=== PATIENT | female | born 1940 | race Caucasian/White ===

== ENCOUNTER 2024-04-07 13:53 | Inpatient (IN) | payer MEDICARE, BC ==
[~2024-04-07] VITALS: Ht 162.6 cm; Wt 46.7 kg
[2024-04-07] MEDS ORDERED: DIPH25TA62 PO (14:08)
[2024-04-07] MEDS ORDERED: BENZ200C53 PO (14:08)
[2024-04-07] MEDS ORDERED: AMLO10TA59 PO (14:08)
[2024-04-07] MEDS ORDERED: LIPA1CAP15 PO (14:08)
[2024-04-07] MEDS ORDERED: ALPR0.25 PO (14:08)
[2024-04-07] MEDS ORDERED: MENT71OI TP (14:08)
[2024-04-07] MEDS ORDERED: LOPE2CAP14 PO (14:08)
[2024-04-07] MEDS ORDERED: FENT1PAT4 TD (14:08)
[2024-04-07] MEDS ORDERED: ALPR0.255 PO (14:08)
[2024-04-07] MEDS ORDERED: CARV6.25 PO (14:08)
[2024-04-07] MEDS ORDERED: VENL37.55 PO (14:08)
[2024-04-07] MEDS ORDERED: PHEN-705 PO (14:29)
[2024-04-07] MEDS ORDERED: CALC500T13 PO (14:29)
[2024-04-07] MEDS ORDERED: CHOL378P4 PO (14:29)
[2024-04-07] MEDS ORDERED: ALBU18HF2 IH (14:29)
[2024-04-07] MEDS ORDERED: SUCR1TAB PO (14:29)
[2024-04-07] MEDS ORDERED: LACT10SO58 PO (14:29)
[2024-04-07] MEDS ORDERED: GUAI237L98 PO (14:29)
[2024-04-07] MEDS ORDERED: NUT.237L67 PO (14:29)
[2024-04-07] MEDS ORDERED: FOLI0.8T23 PO (14:29)
[2024-04-07] MEDS ORDERED: PSYL575P22 PO (14:29)
[2024-04-07] MEDS ORDERED: SENN8.6T19 PO (14:29)
[2024-04-07] MEDS ORDERED: DIPH1TAB PO (14:29)
[2024-04-07] MEDS ORDERED: ONDA4TAB5 PO (14:29)
[2024-04-07] MEDS ORDERED: FLUO30CR36 TP (14:29)
[2024-04-07] MEDS ORDERED: PANT40TA49 PO (14:29)
[2024-04-07] MEDS ORDERED: HYDR-3980 PO (14:29)
[2024-04-07] MEDS ORDERED: GABA-532 PO (14:29)
[2024-04-07] MEDS ORDERED: NALO4SPR NS (14:29)
[2024-04-07] MEDS ORDERED: IBUP-1953 PO (14:29)
[2024-04-07] MEDS ORDERED: METH1TAB PO (14:29)
[2024-04-07] MEDS ORDERED: LEVO100T10 PO (14:29)
[2024-04-07 14:48] LABS: BASOPHILS % (AUTO) 0.5 % (0.0-2.0); EOSINOPHILS # (AUTO) 0.4 K/uL (0.0-0.7); EOSINOPHILS % (AUTO) 4.7 % (0.0-7.0); HEMATOCRIT 33.6 % (31.2-41.9); HEMOGLOBIN 10.9 g/dL (10.9-14.3); LYMPHOCYTES # (AUTO) 2.1 K/uL (0.8-4.8); LYMPHOCYTES % (AUTO) 22.4 % (20.5-51.5); MEAN CORPUSCULAR HEMOGLOBIN 28.7 uug (24.7-32.8); MEAN CORPUSCULAR HGB CONC 33 g/dL (32.3-35.6); MEAN CORPUSCULAR VOLUME 88.2 fL (75.5-95.3); MONOCYTES % (AUTO) 10.8 % (0.0-11.0); NEUTROPHILS # (AUTO) 5.9 K/uL (1.8-8.9); NEUTROPHILS % (AUTO) 61.6 % (38.5-71.5); PLATELET COUNT (AUTO) 213 K/uL (179-408); RED BLOOD CELL COUNT(AUTO) 3.82 MIL/uL (3.63-4.92); RED CELL DISTRIBUTION WIDTH 15.1 % (12.3-17.7); WHITE BLOOD COUNT (AUTO) 9.6 K/uL (3.8-11.8)
[2024-04-07 14:51] LABS: CALCIUM 9.1 mg/dL (8.5-10.1); CARBON DIOXIDE 30 mmol/L (21-32); CHLORIDE 100 mmol/L (98-107); GLUCOSE 122 mg/dL (74-106); POTASSIUM 4.3 mmol/L (3.5-5.1); SODIUM SERUM 140 mmol/L (136-145); UREA NITROGEN, BLOOD 34 mg/dL (7-18)
[2024-04-07 14:56] LABS: DIFFERENTIAL COMMENT 1
[2024-04-07 14:58] LABS: AMMONIA 42 umol/L (11-32); ETHANOL < 3 MG/DL (0-10)
[2024-04-07 15:07] LABS: ACETAMINOPHEN < 2.0 ug/mL (10-30); ALANINE AMINOTRANSFERASE 93 U/L (14-59); ALBUMIN 3.1 g/dL (3.4-5.0); ALKALINE PHOSPHATASE 589 U/L (50-136); ASPARTATE AMINOTRANSFERASE 116 U/L (15-37); BILIRUBIN,DIRECT 0.1 mg/dL (0.0-0.2); BILIRUBIN,TOTAL 0.6 mg/dL (0.2-1.0); TOTAL PROTEIN, SERUM 7.2 g/dL (6.4-8.2)
[2024-04-07 15:20] LABS: THYROID STIMULATING HORMONE 6.314 mIU/mL (0.358-3.740)
[2024-04-07 15:32] LABS: *BILIRUBIN,URIN NEGATIVE (NEGATIVE); *CLARITY,URINE CLEAR (CLEAR); *COLOR,URINE YELLOW (YELLOW); *KETONES,URINE NEGATIVE (NEGATIVE); *PROTEIN,URINE 2+ (NEGATIVE); *UROBILINOGEN,URINE 0.2 E.U./dl (NORMAL); LEUKOCYTE ESTERASE ,URINE NEGATIVE (NEGATIVE); NITRITE, URINE NEGATIVE (NEGATIVE); UGLUCOSE NEGATIVE (NEGATIVE)
[2024-04-07 15:37] LABS: *BLOOD, URINE TRACE (NEGATIVE)
[2024-04-07] MEDS ORDERED: AZITHROMYCIN 250 MG TABLET ONE (15:37)
[2024-04-07] MEDS ORDERED: CEFTRIAXONE /D5W 50ML IVPB **ER PYXIS IV ONE (15:37)
[2024-04-07] MEDS: CEFTRIAXONE 1 G in IV DEXTROSE 5% 50 ML IV ONE (15:44)
[2024-04-07] MEDS: AZITHROMYCIN 250 MG TABLET PO ONE (15:45)
[2024-04-07 15:46] LABS: *AMPHETAMINE, URINE NEGATIVE (NEGATIVE); *BARBITURATE, URINE NEGATIVE (NEGATIVE); *BENZODIAZEPINE, URINE POSITIVE (NEGATIVE); *CANNABINOID, URINE NEGATIVE (NEGATIVE); *COCCAINE, URINE NEGATIVE (NEGATIVE); *OPIATE, URINE POSITIVE (NEGATIVE); *PHENCYCLIDINE SCREEN,URINE NEGATIVE (NEGATIVE)
[2024-04-07 15:56] LABS: FENTANYL, URINE POSITIVE (NEGATIVE)
[2024-04-07 16:02] LABS: BACTERIA,URINE MODERATE /HPF (NONE SEEN); RBC,URINE 0-3 /HPF (0-3); SQUAMOUS EPITHELIAL CELL,UR FEW /HPF (NONE SEEN); WBC,URINE 0-3 /HPF (0-3)
[2024-04-07 16:15] VITALS: O2SAT 98
[2024-04-07] MEDS ORDERED: BENZ-38 PO (16:43)
[2024-04-07 16:58] VITALS: BP 123/53; TEMP 97.2; O2SAT 97
[2024-04-07] MEDS ORDERED: METH-806 PO (17:03)
[2024-04-07] MEDS ORDERED: NALOXONE NASAL SPRAY 4 MG SPRAY NS SCH (18:00)
[2024-04-07] MEDS ORDERED: SENNOSIDES 1 TABLET PO PRN (18:00)
[2024-04-07] MEDS ORDERED: ONDANSETRON HCL 4 MG TABLET PO PRN (18:00)
[2024-04-07] MEDS ORDERED: BENZONATATE 100 MG CAPSULE PO PRN (18:00)
[2024-04-07] MEDS ORDERED: REMEDY ESSENTIAL ZINC PASTE 113 GM TP PRN (18:00)
[2024-04-07] MEDS ORDERED: NALOXONE HCL 0.4 MG/ML AMPUL IV PRN (18:00)
[2024-04-07] MEDS: NEPRO (VANILLA) 237 ML CAN PO SCH (18:27)
[2024-04-07] MEDS: IV NS 1000 ML 1,000 ML IV PRN (18:33)
[2024-04-07 19:58] VITALS: BP 128/56; TEMP 97.9; O2SAT 100
[2024-04-07] MEDS: CARVEDILOL 6.25 MG TABLET PO SCH (20:55)
[2024-04-07] MEDS: SUCRALFATE 1 G TABLET PO SCH (20:55)
[2024-04-08] VITALS (9 sets, daily range): BP systolic 119–153; BP diastolic 48–61; TEMP 98–98.9; O2SAT 96–99
[2024-04-08] MEDS: LEVOTHYROXINE SODIUM 100 MCG TABLET PO SCH (06:11)
[2024-04-08 06:50] LABS: BASOPHILS % (AUTO) 0.5 % (0.0-2.0); EOSINOPHILS # (AUTO) 0.3 K/uL (0.0-0.7); EOSINOPHILS % (AUTO) 4.4 % (0.0-7.0); HEMATOCRIT 29.8 % (31.2-41.9); HEMOGLOBIN 9.9 g/dL (10.9-14.3); LYMPHOCYTES # (AUTO) 1.5 K/uL (0.8-4.8); LYMPHOCYTES % (AUTO) 23.2 % (20.5-51.5); MEAN CORPUSCULAR HEMOGLOBIN 29.1 uug (24.7-32.8); MEAN CORPUSCULAR HGB CONC 33 g/dL (32.3-35.6); MEAN CORPUSCULAR VOLUME 87.8 fL (75.5-95.3); MONOCYTES # (AUTO) 0.7 K/uL (0.1-1.30); MONOCYTES % (AUTO) 10.8 % (0.0-11.0); NEUTROPHILS # (AUTO) 3.9 K/uL (1.8-8.9); NEUTROPHILS % (AUTO) 61.1 % (38.5-71.5); PLATELET COUNT (AUTO) 178 K/uL (179-408); RED CELL DISTRIBUTION WIDTH 14.7 % (12.3-17.7); WHITE BLOOD COUNT (AUTO) 6.4 K/uL (3.8-11.8)
[2024-04-08 06:58] LABS: DIFFERENTIAL COMMENT 1
[2024-04-08 07:07] LABS: ALANINE AMINOTRANSFERASE 313 U/L (14-59); ALBUMIN 2.5 g/dL (3.4-5.0); ALKALINE PHOSPHATASE 596 U/L (50-136); ASPARTATE AMINOTRANSFERASE 495 U/L (15-37); BILIRUBIN,TOTAL 0.7 mg/dL (0.2-1.0); CALCIUM 8.7 mg/dL (8.5-10.1); CARBON DIOXIDE 31 mmol/L (21-32); CHLORIDE 105 mmol/L (98-107); CHOLESTEROL 175 mg/dL (<200); CREATININE 3.1 mg/dL (0.6-1.3); GLUCOSE 90 mg/dL (74-106); HDL CHOLESTEROL 91 mg/dL (40-60); MAGNESIUM 1.7 mg/dL (1.8-2.4); PHOSPHOROUS 4.2 mg/dL (2.5-4.9); POTASSIUM 4.6 mmol/L (3.5-5.1); SODIUM SERUM 141 mmol/L (136-145); TRIGLYCERIDES 70 MG/DL (30-150); UREA NITROGEN, BLOOD 40 mg/dL (7-18)
[2024-04-08] MEDS: ALBUTEROL SULFATE 2.5 MG/3 ML NEBU NEB SCH (07:30)
[2024-04-08] MEDS: PANTOPRAZOLE SODIUM 40 MG TABLET.DR PO SCH (08:34)
[2024-04-08] MEDS: AMLODIPINE 10 MG TABLET PO SCH (08:34)
[2024-04-08] MEDS: CALCIUM CARBONATE 500 MG TAB.CHEW PO SCH (08:34)
[2024-04-08] MEDS: GABAPENTIN 100 MG CAPSULE PO SCH (08:34)
[2024-04-08] MEDS: FOLIC ACID/VITAMIN B COMP W-C TABLET PO SCH (08:35)
[2024-04-08] MEDS: LIPASE/PROTEASE/AMYLASE 4200 UNITS CAPSULE.DR PO SCH (08:40)
[2024-04-08] MEDS: VENLAFAXINE XR 37.5 MG CAP.SR.24H PO SCH (08:40)
[2024-04-08] MEDS ORDERED: LIPASE/PROTEASE/AMYLASE 4200 UNITS CAPSULE.DR PO SCH (09:00)
[2024-04-08] MEDS ORDERED: ALBUTEROL SULFATE 8 GM HFA.AER.AD IH SCH (09:00)
[2024-04-08] MEDS ORDERED: MAGNESIUM SULFATE/D5W 400 ML ONE (20:59)
[2024-04-08] MEDS: MAGNESIUM SULFATE/D5W 100 ML IV SCH (21:04)
[2024-04-09] VITALS (9 sets, daily range): BP systolic 137–145; BP diastolic 52–60; TEMP 97.5–98.3; O2SAT 90–99
[2024-04-09 07:04] LABS: BASOPHILS % (AUTO) 0.4 % (0.0-2.0); DIFFERENTIAL COMMENT 1; EOSINOPHILS # (AUTO) 0.3 K/uL (0.0-0.7); EOSINOPHILS % (AUTO) 3.8 % (0.0-7.0); HEMATOCRIT 30.4 % (31.2-41.9); HEMOGLOBIN 10.2 g/dL (10.9-14.3); LYMPHOCYTES % (AUTO) 26.1 % (20.5-51.5); MEAN CORPUSCULAR HEMOGLOBIN 29.2 uug (24.7-32.8); MEAN CORPUSCULAR HGB CONC 33 g/dL (32.3-35.6); MEAN CORPUSCULAR VOLUME 87.4 fL (75.5-95.3); MONOCYTES # (AUTO) 0.7 K/uL (0.1-1.30); MONOCYTES % (AUTO) 8.9 % (0.0-11.0); NEUTROPHILS # (AUTO) 4.6 K/uL (1.8-8.9); NEUTROPHILS % (AUTO) 60.8 % (38.5-71.5); PLATELET COUNT (AUTO) 203 K/uL (179-408); RED BLOOD CELL COUNT(AUTO) 3.48 MIL/uL (3.63-4.92); RED CELL DISTRIBUTION WIDTH 14.8 % (12.3-17.7); WHITE BLOOD COUNT (AUTO) 7.5 K/uL (3.8-11.8)
[2024-04-09 07:19] LABS: CALCIUM 8.9 mg/dL (8.5-10.1); CARBON DIOXIDE 30 mmol/L (21-32); CHLORIDE 107 mmol/L (98-107); CREATININE 3.3 mg/dL (0.6-1.3); GLUCOSE 103 mg/dL (74-106); MAGNESIUM 3.3 mg/dL (1.8-2.4); PHOSPHOROUS 3.4 mg/dL (2.5-4.9); POTASSIUM 4.2 mmol/L (3.5-5.1); SODIUM SERUM 142 mmol/L (136-145); UREA NITROGEN, BLOOD 43 mg/dL (7-18)
[2024-04-09] MEDS: FENTANYL 25 MCG/HR PATCH EACH TD SCH (08:09)
[2024-04-09] MEDS: IBUPROFEN 400 MG TABLET PO PRN (22:29)
[2024-04-10] VITALS (11 sets, daily range): BP systolic 129–150; BP diastolic 52–60; TEMP 97.7–98.2; O2SAT 92–100
[2024-04-10 06:10] LABS: BASOPHILS % (AUTO) 0.4 % (0.0-2.0); EOSINOPHILS # (AUTO) 0.3 K/uL (0.0-0.7); EOSINOPHILS % (AUTO) 3.5 % (0.0-7.0); HEMATOCRIT 32.8 % (31.2-41.9); LYMPHOCYTES # (AUTO) 1.9 K/uL (0.8-4.8); MEAN CORPUSCULAR HEMOGLOBIN 28.9 uug (24.7-32.8); MEAN CORPUSCULAR HGB CONC 34 g/dL (32.3-35.6); MEAN CORPUSCULAR VOLUME 86.3 fL (75.5-95.3); MONOCYTES # (AUTO) 0.8 K/uL (0.1-1.30); MONOCYTES % (AUTO) 9.1 % (0.0-11.0); PLATELET COUNT (AUTO) 196 K/uL (179-408); WHITE BLOOD COUNT (AUTO) 9.1 K/uL (3.8-11.8)
[2024-04-10 06:21] LABS: DIFFERENTIAL COMMENT 1
[2024-04-10 06:31] LABS: CALCIUM 8.9 mg/dL (8.5-10.1); CARBON DIOXIDE 31 mmol/L (21-32); CHLORIDE 103 mmol/L (98-107); CREATININE 2.3 mg/dL (0.6-1.3); GLUCOSE 99 mg/dL (74-106); MAGNESIUM 2.3 mg/dL (1.8-2.4); PHOSPHOROUS 2.5 mg/dL (2.5-4.9); POTASSIUM 3.3 mmol/L (3.5-5.1); SODIUM SERUM 142 mmol/L (136-145); UREA NITROGEN, BLOOD 22 mg/dL (7-18)
[2024-04-10] MEDS: MUPIROCIN 2% OINT 22 GM TUBE NS SCH (08:33)
[2024-04-10] MEDS ORDERED: MUPIROCIN 2% OINT 22 GM TUBE NS SCH (09:00)
[2024-04-10] MEDS: POTASSIUM CHLORIDE 10 MEQ TAB.PRT.SR PO ONE (10:15)
[2024-04-10] MEDS ORDERED: POTASSIUM CHLORIDE 50 ML IV SCH (10:15)
[2024-04-10 10:46] LABS: ALBUMIN 2.8 g/dL (3.4-5.0); BILIRUBIN,DIRECT 0.1 mg/dL (0.0-0.2); BILIRUBIN,TOTAL 0.5 mg/dL (0.2-1.0); TOTAL PROTEIN, SERUM 6.4 g/dL (6.4-8.2)
[2024-04-10] MEDS: DICYCLOMINE HCL 10 MG CAPSULE PO SCH (12:00)
[2024-04-10] MEDS: METRONIDAZOLE 500 MG TABLET PO SCH (13:17)
[2024-04-10] MEDS ORDERED: FLUOROURACIL (18:49)
[2024-04-10] MEDS: REMEDY ESSENTIAL ZINC PASTE 113 GM TP SCH (21:19)
[2024-04-10] MEDS: ACETAMINOPHEN 325 MG TABLET PO PRN (23:05)
[2024-04-11] VITALS (9 sets, daily range): BP systolic 125–146; BP diastolic 51–59; TEMP 97.4–98.2; O2SAT 97–100
[2024-04-11 06:55] LABS: BASOPHILS % (AUTO) 0.6 % (0.0-2.0); EOSINOPHILS # (AUTO) 0.5 K/uL (0.0-0.7); EOSINOPHILS % (AUTO) 6.9 % (0.0-7.0); HEMATOCRIT 31.5 % (31.2-41.9); HEMOGLOBIN 10.5 g/dL (10.9-14.3); LYMPHOCYTES # (AUTO) 2.5 K/uL (0.8-4.8); LYMPHOCYTES % (AUTO) 31.2 % (20.5-51.5); MEAN CORPUSCULAR HEMOGLOBIN 28.8 uug (24.7-32.8); MEAN CORPUSCULAR HGB CONC 33 g/dL (32.3-35.6); MEAN CORPUSCULAR VOLUME 86.5 fL (75.5-95.3); MONOCYTES # (AUTO) 0.7 K/uL (0.1-1.30); MONOCYTES % (AUTO) 9.5 % (0.0-11.0); NEUTROPHILS # (AUTO) 4.1 K/uL (1.8-8.9); NEUTROPHILS % (AUTO) 51.8 % (38.5-71.5); PLATELET COUNT (AUTO) 207 K/uL (179-408); RED BLOOD CELL COUNT(AUTO) 3.64 MIL/uL (3.63-4.92); RED CELL DISTRIBUTION WIDTH 14.8 % (12.3-17.7); WHITE BLOOD COUNT (AUTO) 7.9 K/uL (3.8-11.8)
[2024-04-11 07:15] LABS: CALCIUM 9.6 mg/dL (8.5-10.1); CARBON DIOXIDE 32 mmol/L (21-32); CHLORIDE 105 mmol/L (98-107); GLUCOSE 102 mg/dL (74-106); MAGNESIUM 2.3 mg/dL (1.8-2.4); PHOSPHOROUS 3.3 mg/dL (2.5-4.9); POTASSIUM 4.1 mmol/L (3.5-5.1); SODIUM SERUM 143 mmol/L (136-145); UREA NITROGEN, BLOOD 28 mg/dL (7-18)
[2024-04-11 07:31] LABS: ALBUMIN 2.8 g/dL (3.4-5.0); BILIRUBIN,DIRECT 0.1 mg/dL (0.0-0.2); BILIRUBIN,TOTAL 0.4 mg/dL (0.2-1.0); TOTAL PROTEIN, SERUM 6.5 g/dL (6.4-8.2)
[2024-04-11 07:38] LABS: DIFFERENTIAL COMMENT 1
[2024-04-11 08:11] LABS: HEPATITIS B SURFACE AB, QUAL Non Reactive (.); HEPATITIS B SURFACE AG Negative (Negative)
[2024-04-11] MEDS ORDERED: HYDROCODONE/APAP 5-325MG TABLET PO PRN (11:00)
[2024-04-11] MEDS: levoFLOXacin 750 MG TABLET PO ONE (11:14)
[2024-04-11] MEDS: ALPRAZOLAM 0.25 MG TABLET PO PRN (11:17)
[2024-04-11] MEDS: LOPERAMIDE HCL 2 MG CAPSULE PO PRN (11:17)
[2024-04-12 03:10] VITALS: O2SAT 97
[2024-04-12 06:00] VITALS: BP 135/56; TEMP 97.6; O2SAT 99
[2024-04-12 07:31] LABS: BASOPHILS % (AUTO) 0.6 % (0.0-2.0); EOSINOPHILS # (AUTO) 0.4 K/uL (0.0-0.7); EOSINOPHILS % (AUTO) 5.7 % (0.0-7.0); HEMATOCRIT 30.9 % (31.2-41.9); HEMOGLOBIN 10.3 g/dL (10.9-14.3); LYMPHOCYTES # (AUTO) 2.4 K/uL (0.8-4.8); LYMPHOCYTES % (AUTO) 30.9 % (20.5-51.5); MEAN CORPUSCULAR HEMOGLOBIN 29.1 uug (24.7-32.8); MEAN CORPUSCULAR HGB CONC 34 g/dL (32.3-35.6); MEAN CORPUSCULAR VOLUME 86.9 fL (75.5-95.3); MONOCYTES # (AUTO) 0.8 K/uL (0.1-1.30); MONOCYTES % (AUTO) 9.9 % (0.0-11.0); NEUTROPHILS # (AUTO) 4.1 K/uL (1.8-8.9); NEUTROPHILS % (AUTO) 52.9 % (38.5-71.5); PLATELET COUNT (AUTO) 205 K/uL (179-408); RED BLOOD CELL COUNT(AUTO) 3.56 MIL/uL (3.63-4.92); WHITE BLOOD COUNT (AUTO) 7.7 K/uL (3.8-11.8)
[2024-04-12 07:39] LABS: DIFFERENTIAL COMMENT 1
[2024-04-12 07:55] LABS: CALCIUM 9.7 mg/dL (8.5-10.1); CARBON DIOXIDE 27 mmol/L (21-32); CHLORIDE 105 mmol/L (98-107); CREATININE 3.3 mg/dL (0.6-1.3); GLUCOSE 96 mg/dL (74-106); MAGNESIUM 2.2 mg/dL (1.8-2.4); PHOSPHOROUS 3.7 mg/dL (2.5-4.9); POTASSIUM 4.1 mmol/L (3.5-5.1); SODIUM SERUM 143 mmol/L (136-145); UREA NITROGEN, BLOOD 35 mg/dL (7-18)
[2024-04-12 08:29] VITALS: O2SAT 97
[2024-04-12 08:39] VITALS: O2SAT 97
[2024-04-12 11:53] VITALS: BP 141/60; TEMP 97.9; O2SAT 100
[2024-04-12] MEDS: MORPHINE SULFATE 4 MG/1 ML DISP.SYRIN IV ONE (13:46)
== END 2024-04-12 15:25 | DRG 917 ==
LOC: ER 13:53 → TELE3 16:06 → MEDSURG3 04-11 11:07
PROVIDERS: ADMIT Nurse Practitioner Acute Care; ATTEND Nurse Practitioner Acute Care
PROC: 5A1D70Z Performance of Urinary Filtration, Intermittent, Less than 6 Hours Per Day (ICD-10-PCS; principal; 2024-04-09)
DX: T40.411A Poisoning by fentanyl or fentanyl analogs, accidental (unintentional), initial encounter (principal); G92.8 Other toxic encephalopathy; N18.6 End stage renal disease; E44.0 Moderate protein-calorie malnutrition; Z68.1 Body mass index [BMI] 19.9 or less, adult; I12.0 Hypertensive chronic kidney disease with stage 5 chronic kidney disease or end stage renal disease; J96.11 Chronic respiratory failure with hypoxia; E72.20 Disorder of urea cycle metabolism, unspecified; T40.2X1A Poisoning by other opioids, accidental (unintentional), initial encounter; T42.6X1A Poisoning by other antiepileptic and sedative-hypnotic drugs, accidental (unintentional), initial encounter; T42.4X1A Poisoning by benzodiazepines, accidental (unintentional), initial encounter; Y92.099 Unspecified place in other non-institutional residence as the place of occurrence of the external cause; Z99.2 Dependence on renal dialysis; K59.03 Drug induced constipation; K58.0 Irritable bowel syndrome with diarrhea; Z85.828 Personal history of other malignant neoplasm of skin; Z85.028 Personal history of other malignant neoplasm of stomach; Z79.899 Other long term (current) drug therapy; G89.4 Chronic pain syndrome; F41.9 Anxiety disorder, unspecified; F32.9 Major depressive disorder, single episode, unspecified; E83.42 Hypomagnesemia; E78.5 Hyperlipidemia, unspecified; Z22.322 Carrier or suspected carrier of Methicillin resistant Staphylococcus aureus; D69.6 Thrombocytopenia, unspecified; K27.9 Peptic ulcer, site unspecified, unspecified as acute or chronic, without hemorrhage or perforation; E03.9 Hypothyroidism, unspecified; Z79.890 Hormone replacement therapy; R74.01 Elevation of levels of liver transaminase levels; R91.8 Other nonspecific abnormal finding of lung field
CPT/HCPCS: 36415; 70450; 71045; 74181; 83605; 83735; 84100; 84443; 84484; 85025; 85730; 86706; 87040; 87340; 90937; 93005; 94640; 94760; A4606; A4663; A6213; G0378; G0480; J0696; J2270; J3475; J7040; Q0144